=== PATIENT | female | born 2000 | race Caucasian/White ===

== ENCOUNTER → 2023-12-23 | Day surgery (SDC) | payer OTHER ==
[~2023-12-23] VITALS: Ht 165.1 cm; Wt 100.8 kg
[~2023-12-23] MED LIST: LR 1,000 ML IV SCH; ceFAZolin SOD 2 GM in IV 1 EA IV ONE
[2023-12-23 08:39] LABS: HEMATOCRIT 37.4 % (36.0-47.0); HEMOGLOBIN 12.5 g/dl (12.0-15.5); MEAN CORPUSCULAR HGB CONC 33.4 g/dl (32.0-36.5); MEAN CORPUSCULAR VOLUME 83.9 fl (80.0-96.0); PLATELET COUNT, AUTOMATED 310 10^3/uL (150-450); RED BLOOD COUNT 4.46 10^6/uL (4.00-5.40); WHITE BLOOD COUNT 5.7 10^3/uL (4.0-10.0)
[2023-12-23 08:43] VITALS: BP 143/84; TEMP 97.5; O2SAT 98
[2023-12-23 08:55] LABS: HCG, SERUM QUALITATIVE NEGATIVE (NEGATIVE)
== END | disposition home or self-care (01) ==
LOC: M SDC 07:50
PROVIDERS: ATTEND Student in an Organized Health Care Education/Training Program
DX: N75.0 Cyst of Bartholin's gland (principal); Z53.8 Procedure and treatment not carried out for other reasons

== ENCOUNTER → 2024-05-03 | Outpatient (CLI) | payer OTHER ==
[~2024-05-03] MED LIST changes: +ISOVUE-300 61% 100ML VIAL As Ordered ONE; +LIDOCAINE 1% MDV 20ML VIAL As Ordered ONE; -LR 1,000 ML IV SCH; -ceFAZolin SOD 2 GM in IV 1 EA IV ONE; +methylPREDNISolone 80MG/ML SUSP 1ML VIAL As Ordered ONE
== END ==
LOC: M RAD 14:08
PROVIDERS: ATTEND Student in an Organized Health Care Education/Training Program
DX: M25.551 Pain in right hip (principal)
CPT/HCPCS: 20610; 77002; J1010; Q9967

== ENCOUNTER → 2025-02-27 | Outpatient (CLI) | payer OTHER ==
[2025-02-27 18:08] LABS: PLATELET COUNT, AUTOMATED 315 10^3/uL (150-450)
[2025-02-27 18:32] LABS: TOTAL PROTEIN,RANDOM URINE 10.5 MG/DL (0.0-14.0)
[2025-02-27 18:35] LABS: LDH LACTATE DEHYDROGENASE 123 U/L (120-246)
[2025-02-27 18:37] LABS: ALT/SGPT 13 U/L (7.0-40); AST/SGOT 17 U/L (<34); CREATININE FOR GFR 0.70 MG/DL (0.55-1.30); GLOMERULAR FILTRATION RATE > 90.0 (>60)
[2025-02-27 18:38] LABS: Trichomonas vaginalis (AMP) NOT DETECTED (NEGATIVE)
[2025-02-27 19:01] LABS: GC DNA AMPLIFICATION NEGATIVE (NEGATIVE)
[2025-02-27 19:09] LABS: HIV 1&2 SCREEN NEGATIVE (NEGATIVE)
[2025-02-27 19:17] LABS: HEPATITIS C VIRUS ABY INDEX < 0.02 INDEX (<0.8)
[2025-03-04 05:23] LABS: FACTOR V 121 % normal (65-150)
[2025-03-06 08:34] LABS: Anticardiolipin Ab, IGG < 2.0 GPL-U/mL (<20.0); Anticardiolipin Ab, IGM < 2.0 MPL-U/mL (<20.0); Anticardiolipin Ab, IgA < 2.0 APL-U/mL (<20.0); Beta-2 GLYCOPROTEIN I, IGG < 2.0 U/mL (<20.0); Beta-2 Glycoprotein I, IGA < 2.0 U/mL (<20.0); Beta-2 Glycoprotein I, IGM < 2.0 U/mL (<20.0)
[2025-03-06 23:52] LABS: PROTEIN S FUNCTIONAL ACTIVITY 56 % normal (60-140)
[2025-03-07 07:57] LABS: APTT APSCOMP 36 sec (<=40); DRVTT Screen Seconds 41 sec (<=45)
== END ==
LOC: M PLALAB 15:14
PROVIDERS: ATTEND Advanced Practice Midwife
DX: Z34.80 Encounter for supervision of other normal pregnancy, unspecified trimester (principal)

== ENCOUNTER → 2025-03-15 | Outpatient (CLI) | payer OTHER | LOC: M WHC 07:58 | PROVIDERS: ATTEND Advanced Practice Midwife | DX: Q51.28 Other and unspecified doubling of uterus (principal); N83.202 Unspecified ovarian cyst, left side ==

== ENCOUNTER → 2025-03-28 | Outpatient (CLI) | payer OTHER | LOC: M PLALAB 08:08 | PROVIDERS: ATTEND Obstetrics & Gynecology | DX: Z34.80 Encounter for supervision of other normal pregnancy, unspecified trimester (principal) ==